=== PATIENT | female | born 2000 | race Two or more races ===

== ENCOUNTER 2023-02-06 14:10 | Outpatient (REF) | payer BC, SELFPAY ==
[2023-02-06 14:38] LABS: MANUAL DIFF FLAG NO
[2023-02-06 15:43] LABS: Basophils Absolute Auto 0.1 X10*3/uL (0.0-0.2); Eosinophils Absolute Auto 0.2 X10*3/uL (0.0-0.4); Eosinophils Percent Auto 3.8 % (0-4); Hematocrit 38.3 % (37.0-47.0); Hemoglobin 12.4 g/dl (12.0-16.0); Imm Gran Abs Auto 0.01 X10*3/uL (0.00-0.03); Imm Gran Pct Auto 0.2 % (0.0-0.4); Lymphocytes Absolute Auto 1.9 X10*3/uL (1.2-4.9); Lymphocytes Percent Auto 36.1 % (20-40); Mean Corpuscular HGB Conc 32.4 g/dl (31.0-35.0); Mean Corpuscular Hemoglobin 29.7 pg (27.0-33.0); Mean Corpuscular Volume 91.6 fL (80.0-98.0); Mean Platelet Volume 10.4 fL (9.4-12.3); Monocytes Absolute Auto 0.4 X10*3/uL (0.1-1.2); Monocytes Percent Auto 7.5 % (2-11); Neutrophils Absolute Auto 2.7 x10*3/uL (2.0-8.3); Neutrophils Percent Auto 51.4 % (45-73); Platelet Count 255 X10*3/uL (160-400); Red Blood Count 4.18 X10*6/uL (4.20-5.50); Red Cell Distribution Width 12.3 % (11.0-16.0); White Blood Count 5.2 X10*3/uL (4.8-10.8)
[2023-02-06 16:27] LABS: Alanine Aminotransferase 90 U/L (0-31); Alkaline Phosphatase 62 U/L (39-117); Anion Gap 12 (12-20); Aspartate Amino Transferase 55 U/L (5-31); Bilirubin Total 0.6 mg/dL (0.0-1.0); Blood Urea Nitrogen 9 mg/dL (9-16); Calcium 9.3 mg/dL (8.4-10.2); Carbon Dioxide 26 mmol/L (22-29); Chloride 107 mmol/L (96-108); Estimated Glomerular Filt Rate > 60; Glucose Random 98 mg/dL (60-115); Potassium 4.4 mmol/L (3.3-5.1); Sodium 141 mmol/L (135-145); Total Protein 6.6 g/dL (6.5-8.0)
[2023-02-06 16:59] LABS: Folate 13.1 ng/mL (> or = 4.0); Thyroid Stimulating Hormone 0.45 uIU/mL (0.32-4.0); Vitamin B12 442 pg/mL (200-900)
[2023-02-06 18:02] LABS: Amphetamine Screen Urine Not Detected (Not Detect); Barbiturates, Urine Not Detected (Not Detect); Benzodiazepines Screen Urine Not Detected (Not Detect); Cannabinoid Screen Urine Not Detected (Not Detect); Cocaine Screen Urine Not Detected (Not Detect); Fentanyl, urine Not Detected (Not Detect); Opiate Screen Urine Not Detected (Not Detect); Phencyclidine Screen Urine Not Detected (Not Detect)
== END 2023-02-06 14:11 | disposition home or self-care (01) ==
LOC: HO.LAB 14:10
PROVIDERS: Visit Provider Psychiatry & Neurology Psychiatry
DX: F33.1 Major depressive disorder, recurrent, moderate (principal); R44.0 Auditory hallucinations
CPT/HCPCS: 80053; 80307; 82607; 82746; 84439; 84443; 85025

== ENCOUNTER 2023-02-12 12:34 | Outpatient (REF) | payer BC, SELFPAY | END 2023-02-12 12:35 | disposition home or self-care (01) | LOC: HO.LAB 12:34 | PROVIDERS: Visit Provider Psychiatry & Neurology Psychiatry | DX: Z13.89 Encounter for screening for other disorder (principal) ==

== ENCOUNTER 2023-02-13 11:00 | Outpatient (RCR) | payer BC, SELFPAY ==
[2023-02-06 12:03] VITALS: BMI 20.8
--- NOTE | 2023-02-06 13:05 | PC.ADMIT ---
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 Patient struggling with mood liability. Reports self harming by punching blanc, scratching and pinching herself. She is from [place]. Denied history of inpatient hospitalizations. Patient is not on any prescription medications. She receives medical services through health services at the [facility]. Patient is alert and oriented x4. Calm and cooperative. Presented with anxious mood and affect. Denied SI or thoughts to harm herself at present. Patient given a copy of her safety plan if needed and I reviewed her safety plan with her.
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
--- NOTE | 2023-02-11 15:20 | HO.PHP ---
I met with Joel to review her tx plan. She states that she is feeling better and would like to do a half day today and discharge on . We agreed that will be her last day.
[2023-02-12 13:46] LABS: Gamma Glutamyl Transpeptidase 21 U/L (7-33)
[2023-02-12 15:28] LABS: Erythrocyte Sedimentation Rate 10 MM/HR (0-20)
[2023-02-14 08:40] LABS: HBS Num1 > 1000.00 mIU/mL (0-7.99); HBc Num1 0.09 S/CO (0.00-0.79); HBsAGNum1 0.31 S/CO (0.00-0.99); Hepatitis A Antibody IgM 0.17 Index (0-0.79); Hepatitis B Core Antibody Nonreactive (Nonreactive); Hepatitis B Surface Antigen Negative (Negative); ~HepC Num1 0.15 S/CO (0.00-0.79); ~Hepatitis A Antibody IgM Nonreactive (Nonreactive); ~Hepatitis B Surface Antibody REACTIVE (Nonreactive); ~Hepatitis C Antibody Nonreactive (Nonreactive)
--- NOTE | 2023-02-14 09:12 | HO.PHPPROGNO ---
Subjective Subjective Date of Service: 02/13/23 Reason For Visit: anxiety,depression Medical Problems Affecting Mental Status: No Interim History: Less anxious, less depressed. Denies SI, says feels safe. Expresses hope for future. Attending Groups: Yes Review of Systems Acute medical concerns: No Medical Review of Systems: unchanged Review of Systems Review of Systems Yes all other systems are reviewed and are negative Constitutional: Reports no additional constitutional complaints Mental Status Exam Mental Status Exam Narrative: Well-developed, well-nourished, in NAD. General appearance, well groomed, appropriately dressed for season and age. Musculoskeletal: No involuntary movements noted, motor activity calm, posture within normal limits. Manner/behavior: Calm, cooperative. Speech: Fluent, unimpaired, normal rate volume and rhythm. Mood: Stable, says improved, happy . Affect: Mood congruent. Thought process/associations: Linear, goal directed. Thought content: Normal, future oriented. Delusions: None. Hallucinations: None. Suicidality/self destructive behavior: None. Homicidality/violence: none. Reliability: Good Judgment: good Insight: good MSK exam: Normal ambulation, no cogwheeling or rigidity noted. Diagnostics Vital Signs (24Hr): BMI result Body Mass Index 20.8 Labs Labs: Laboratory Results - last 48 hr 02/12/23 02/12/23 12:44 12:44 ESR 10 GGT 21 Assessment & Plan Assessment & Plan (1) Major depressive disorder, recurrent episode with anxious distress: Status: Acute Code(s): F33.9 - Major depressive disorder, recurrent, unspecified Assessment and Plan: Patient reports overall she has found [facility] to be helpful. No SI, feels safe. Able to express hope for future, states ?my teammates need me ?. Involved with school program, describes social support network as good. No current medications prescribed, not interested in medications at this time. Feels stable for discharge from [facility] at this time. Plan 1. Patient appears stable for discharge from [facility] at this time. 2. Patient to follow-up with outpatient providers going forward. Patient educated on: diagnosis and therapeutic strategies Informed Consent: understands Reason for contiued partial hosp. stay Substantial Risk for: stable for discharge Certification I certify that partial hospital treatment is medically necessary due to the symptoms and problems resulting from the patient's mental illness and the failure to treat the patient at the partial hospital level of care would likely result in the patient requiring inpatient psychiatric care which could not be prevented at a less intensive level of care. Total time managing care of this patient today ___20_ minutes. Discharge Plan Discharge Attending provider: Murali Soto Medications: No Action No Known Home Meds Stand Alone Forms: Patient Portal Discharge page Patient Education: Depression (DC)
--- NOTE | 2023-02-20 13:43 | HO.PHP ---
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
== END 2023-02-13 23:59 | disposition home or self-care (01) ==
LOC: HO.PHPA 11:00
PROVIDERS: Psychiatry & Neurology Psychiatry; Visit Provider Psychiatry & Neurology Psychiatry
DX: F33.9 Major depressive disorder, recurrent, unspecified (principal)
CPT/HCPCS: 36415; 82977; 85652; 86704; 86706; 86709; 86803; 87340; 90791; 90853